=== PATIENT | male | born 1980 | race Caucasian/White ===

== ENCOUNTER 2023-05-23 07:52 | Emergency (ER) | payer OTHER ==
[~2023-05-23] VITALS: Ht 185.4 cm; Wt 91.4 kg
[2023-05-23] MEDS ORDERED: MELO15TA28 PO (08:00)
[2023-05-23] MEDS ORDERED: GABA-284 PO (08:00)
[2023-05-23] MEDS ORDERED: HYDR-3713 PO (10:23)
[2023-05-23] MEDS ORDERED: ACYC1TAB PO (10:23)
[2023-05-23 10:35] VITALS: BP 140/87; TEMP 97.2; O2SAT 99
== END 2023-05-23 10:37 | disposition home or self-care (01) ==
LOC: M ED 07:52
DX: B02.9 Zoster without complications (principal); F17.200 Nicotine dependence, unspecified, uncomplicated